=== PATIENT | female | born 1960 | race American Indian/Alaskan Native ===

== ENCOUNTER 2022-02-01 05:35 | Day surgery (SDC) | payer BC, OTHER ==
[~2022-02-01] VITALS: Ht 152.4 cm; Wt 73.0 kg
[~2022-02-01 05:35] MED LIST: FOLIC ACID1 MG PO; HYDROXYCHLOROQ200 MG PO; IBUPROFEN800 MG PO; METHOTREXA25 MG/1 ML INJ; OMEPRAZOLE40 MG PO; PHENOBARBITAL32.4 MG PO; VITAMIN D10000 UNIT PO
--- NOTE | 2022-02-01 07:51 | NUR ---
02/01/22 0751 Shyla Hannah 0749-PT TO PACU IN SUPINE POSITION. PT RESPONDS TO VERBAL AND TACTILE STIMULI. DENIES PAIN AND FALLS QUICKLY BACK TO SLEEP. BREATHING EASY AND UNLABORED. SPO2 >95% ON 6 L O2 VIA SIMPLE MASK. ELYSIA PAD CDI.
--- NOTE | 2022-02-01 14:00 | NUR ---
PT IN SURGERY, HER [facility] HOME AT [place] IS HERE. GAVE INFO ABOUT EITHER WAITING OR RETURNING AT [place]. HE WILL DECIDE. GAVE BLESSING
--- NOTE | 2022-02-01 15:32 | OR ---
[address] [address] Signed DATE OF OPERATION: 02/01/2022 SURGEON: Chad Maradiaga MD PREOPERATIVE DIAGNOSIS: Postmenopausal bleeding. POSTOPERATIVE DIAGNOSIS: Postmenopausal bleeding. PROCEDURE: Hysteroscopy with biopsy. ANESTHESIA: MAC. ESTIMATED BLOOD LOSS: 5 mL. SPECIMEN: Endometrium. DRAINS: None. PACKING: None. FINDINGS: Atrophic small introitus with atrophic vaginal mucosa, small cervix and small mid to anterior uterus. The endometrium was thin and atrophic. There was a slightly raised irregular whitish area in the right upper anterior uterine cavity (at about 11 o'clock), which was about 1 cm in diameter. Otherwise, the rest of the endometrium appeared very thin and atrophic, no other lesions. COMPLICATIONS: None. DESCRIPTION OF PROCEDURE: The patient was brought to the operating room, placed in supine position. After Electronically Signed By: CHAD MARADIAGA MD 02/01/22 153 PATIENT NAME: NAMAN GUPTA OPERATIVE REPORT DATE OF : 62 REPORT #: [id number] PHYSICIAN: CHAD MARADIAGA MD PCP: MAURO MOREIRA MD REPORT IS CONFIDENTIAL AND NOT TO BE RELEASED WITHOUT AUTHORIZATION [facility] [address] [place] [address] Signed adequate MAC was obtained, the patient was placed in dorsal lithotomy position, prepped and draped in the usual sterile fashion. The bladder was drained with straight cath and then a weighted speculum and bimanual exam done. Weighted speculum was placed in the vagina and the anterior lip of the cervix was grasped with a small Allis clamp. The cervix was serially dilated and then the hysteroscope with video attachment was placed in the cervical os and entered the uterine cavity under direct visualization. Sterile saline was used as distending medium. The above findings were noted. The MyoSure Lite was then placed through the hysteroscope and the slightly abnormal whitish area was removed easily in its entirety. The rest of the cavity was biopsied in a 360 degree fashion getting a sample of the entire uterine cavity both upper and lower portion of the uterus and upper cervix. At this point, the cavity was examined. Good hemostasis was noted. There was no lesion left, so the hysteroscope was removed. The cervix was observed, noted to have good hemostasis. The weighted speculum was removed from the vagina. The patient tolerated the procedure well, went to the recovery room in good condition. The sponge and instrument count were correct at the end of the procedure. The endometrial biopsy was sent to Pathology for identification. MD THAO Fragoso/KIERRAL /[id number] cc: Dr. Suri Moreira Copies: ~ Electronically Signed By: CHAD MARADIAGA MD 02/01/22 1532 PATIENT NAME: NAMAN GUPTA OPERATIVE REPORT DATE OF : 62 REPORT #: [id number] PHYSICIAN: CHAD MARADIAGA MD PCP: MAURO MOREIRA MD REPORT IS CONFIDENTIAL AND NOT TO BE RELEASED WITHOUT AUTHORIZATION
--- NOTE | 2022-02-05 07:28 | PATH ---
[facility] [address] [place], [place] [address] Signed SPECIMEN(S): A ENDOMETRIAL CURETTINGS SPECIMEN SOURCE: A. ENDOMETRIAL CURETTINGS CLINICAL HISTORY: Postmenopausal bleeding. FINAL PATHOLOGIC DIAGNOSIS: Endometrium, curettage: - Inactive endometrium. - Fragments of benign endometrial polyp(s). - Polypoid endocervical mucosa. - Myometrium with no histopathologic abnormality. - Negative for atypical hyperplasia or malignancy. NAL:cml:C2NR MICROSCOPIC EXAMINATION: Histologic sections of all submitted blocks are examined by light microscopy. These findings, together with the gross examination, support the pathologic diagnosis. GROSS DESCRIPTION: The specimen, labeled "DB, endometrial curettings," is received in formalin and consists of irregular shaped pink-toledo, membranous tissue fragments that aggregate measure 2.0 x 1.5 x 0.2 cm. Specimen is entirely submitted in cassette (A1). JS (under the direct supervision of a pathologist) The Gross Description was prepared using a voice recognition system. The report was reviewed for accuracy; however, sound-alike word errors, addition and/or deletions may occur. If there is any question about this report, please contact Client Services. PERFORMING LABORATORY: The technical component was performed by [facility], [address] [place] [id number] (CLIA# [id number]). [facility], [address] [address] (CLIA# [id number]). Diagnostician: Liv Reagan MD PATIENT NAME: NAMAN GUPTA PATHOLOGY DATE OF : 62 REPORT #: [id number] PHYSICIAN: [facility] PCP: MAURO MOREIRA MD REPORT IS CONFIDENTIAL AND NOT TO BE RELEASED WITHOUT AUTHORIZATION [address] [facility] [place] [address] Signed Pathologist Electronically Signed 02/02/2022 Copies: ~ PATIENT NAME: NAMAN GUPTA PATHOLOGY DATE OF : 62 REPORT #: [id number] PHYSICIAN: [facility] PCP: MAURO MOREIRA MD REPORT IS CONFIDENTIAL AND NOT TO BE RELEASED WITHOUT AUTHORIZATION
== END 2022-02-01 08:35 | disposition home or self-care (01) ==
LOC: DS 05:35 → OPS 05:35 → DS 07:30 → OPS 07:30
PROVIDERS: ATTEND General Practice
PROC: 0UB98ZX Excision of Uterus, Via Natural or Artificial Opening Endoscopic, Diagnostic (ICD-10-PCS; principal; 2022-02-01 07:30)
DX: N84.0 Polyp of corpus uteri (principal); N95.0 Postmenopausal bleeding; M06.9 Rheumatoid arthritis, unspecified; K21.9 Gastro-esophageal reflux disease without esophagitis; L93.0 Discoid lupus erythematosus; Z87.891 Personal history of nicotine dependence; Z88.5 Allergy status to narcotic agent; Z88.8 Allergy status to other drugs, medicaments and biological substances
CPT/HCPCS: J1885; J2001; J2250; J2405; J2704; J7121

== ENCOUNTER 2025-02-20 07:27 | Emergency (ER) | payer BC, OTHER ==
[~2025-02-20] VITALS: Ht 152.4 cm; Wt 78.3 kg
[2025-02-20 07:45] LABS: BASOPHILS 0.5 % (0.1-1.2); EOSINOPHILS 11.1 % (0.7-5.8); LYMPHOCYTES 27.7 % (19.3-51.7); MCH 30.8 PG (25.6-32.2); MCHC 33.2 g/dL (32.2-35.5); MCV 92.7 fL (79.4-94.8); MONOCYTES 7.0 % (4.7-12.5); NEUTROPHILS 53.5 % (34.0-71.1); RBC 3.44 M/uL (3.93-5.22)
[2025-02-20] MEDS ORDERED: ASPIRIN 81 MG CHEW PO ONE (07:45)
[2025-02-20 08:11] LABS: ALT (SGPT) 18.0 U/L (14-59); AST (SGOT) 21.0 U/L (15-37); GLOMERULAR FILTRATION RATE,EST 100.0 mL/min (>60); PROTEIN, TOTAL 7.3 g/dL (6.4-8.2); UREA NITROGEN 7.0 mg/dL (7-18)
[2025-02-20] MEDS ORDERED: TRAMADOL HCL50 MG PO (08:28)
[2025-02-20] MEDS ORDERED: PREDNISONE20 MG PO (08:28)
[2025-02-20] MEDS ORDERED: predniSONE 20 MG TAB PO ONE (08:30)
[2025-02-20 08:43] VITALS: BP 132/65
--- NOTE | 2025-02-22 14:47 | EKG ---
[facility] [address] [facility] [place] [address] Signed Normal sinus rhythm Normal ECG When compared with ECG of 23-JAN-2022 10:42, No significant change was found Confirmed by Caleb Samaniego MD ([id number]) on 02/22/2025 2:47:46 PM Electronically Signed By: CALEB SAMANIEGO MD 02/22/25 1447 PATIENT NAME: NAMAN GUPTA URIAH Electrocardiogram DATE OF : 62 PHYSICIAN: CALEB SAMANIEGO MD REPORT #: [id number] REPORT IS CONFIDENTIAL AND NOT TO BE RELEASED WITHOUT AUTHORIZATION
== END 2025-02-20 08:36 | disposition home or self-care (01) ==
LOC: ED 07:27
PROVIDERS: Emergency Medicine
DX: M54.10 Radiculopathy, site unspecified (principal); Z87.891 Personal history of nicotine dependence; Z88.8 Allergy status to other drugs, medicaments and biological substances; Z88.5 Allergy status to narcotic agent; Z91.030 Bee allergy status; Z79.899 Other long term (current) drug therapy
CPT/HCPCS: 36415; 71045; 80053; 83735; 84484; 85025; 93005; 93010; 99285-25; A9270; J7512

== ENCOUNTER 2025-06-16 12:26 | Emergency (ER) | payer BC, OTHER ==
[~2025-06-16] VITALS: Ht 152.4 cm; Wt 82.0 kg
[~2025-06-16 12:26] MED LIST changes: +PREDNISONE20 MG PO; +TRAMADOL HCL50 MG PO
[2025-06-16 13:13] LABS: BASOPHILS 0.6 % (0.1-1.2); EOSINOPHILS 16.1 % (0.7-5.8); LYMPHOCYTES 13.0 % (19.3-51.7); MCH 28.7 PG (25.6-32.2); MCHC 32.3 g/dL (32.2-35.5); MCV 88.7 fL (79.4-94.8); MONOCYTES 4.3 % (4.7-12.5); NEUTROPHILS 65.8 % (34.0-71.1); RBC 3.80 M/uL (3.93-5.22)
[2025-06-16] MEDS ORDERED: HYDROmorphone HCL 1 MG/ML SYR IV ONE (13:15)
[2025-06-16 14:05] LABS: ALT (SGPT) 24.0 U/L (14-59); AST (SGOT) 19.0 U/L (15-37); GLOMERULAR FILTRATION RATE,EST 99.0 mL/min (>60); PROTEIN, TOTAL 7.5 g/dL (6.4-8.2); UREA NITROGEN 9.0 mg/dL (7-18)
[2025-06-16 15:28] VITALS: BP 159/82
--- NOTE | 2025-06-17 13:57 | EKG ---
[facility] [address] [facility] [place] [address] Signed Normal sinus rhythm Normal ECG When compared with ECG of 20-FEB-2025 07:36, No significant change was found Confirmed by Silver Johnson DO ([id number]) on 06/17/2025 1:56:57 PM Electronically Signed By: SILVER JOHNSON DO 06/17/25 1357 PATIENT NAME: NAMAN GUPTA URIAH Electrocardiogram DATE OF : 62 PHYSICIAN: SILVER JOHNSON DO REPORT #: [id number] REPORT IS CONFIDENTIAL AND NOT TO BE RELEASED WITHOUT AUTHORIZATION
== END 2025-06-16 15:30 | disposition home or self-care (01) ==
LOC: ED 12:26
PROVIDERS: Emergency Medicine
DX: R07.89 Other chest pain (principal); Z87.891 Personal history of nicotine dependence; Z88.5 Allergy status to narcotic agent; Z88.8 Allergy status to other drugs, medicaments and biological substances; Z91.030 Bee allergy status; Z79.899 Other long term (current) drug therapy
CPT/HCPCS: 36415; 71045; 80053; 84484; 85025; 93005; 93010; 96374; 99285-25; J1171